=== PATIENT | male | born 1975 | race Caucasian/White ===

== ENCOUNTER 2019-07-26 12:21 | Emergency (ER) | payer OTHER ==
[~2019-07-26] VITALS: Ht 180.3 cm; Wt 90.3 kg
[2019-07-26 12:25] VITALS: Ht 180.3 cm; Wt 90.3 kg
[2019-07-26 13:03] LABS: BASOPHIL % 0.5 % (0-2); PLATELET COUNT 193 x10^3mcL (130-400); RED CELL DISTRIBUTION WIDTH 13.6 % (11.5-14.5)
[2019-07-26 13:29] LABS: ALBUMIN 3.9 g/dL (3.4-5.0); CALCIUM 9.2 mg/dL (8.5-10.1); CHLORIDE SERUM 105 mmol/L (98-107); CREATININE SERUM 1.1 mg/dL (0.7-1.3); GFR1 > 60 mL/min; GLUCOSE SERUM 82 mg/dL (74-106); POTASSIUM SERUM 3.6 mmol/L (3.5-5.1); SODIUM SERUM 143 mmol/L (136-145); TOTAL PROTEIN, SERUM 8.1 g/dL (6.4-8.2)
[2019-07-26 13:30] LABS: ALKALINE PHOSPHATASE 67 U/L (46-116); ALT/SGPT 45 U/L (16-63); AST/SGOT 21 U/L (15-37); BILIRUBIN TOTAL 0.6 mg/dL (0.20-1.00)
[2019-07-26 15:48] VITALS: BP 128/84
== END 2019-07-26 15:48 | disposition home or self-care (01) ==
LOC: ED 12:21 → EDBD 12:21 → ED 15:48
PROVIDERS: Emergency Medicine
DX: R00.2 Palpitations (principal); K21.9 Gastro-esophageal reflux disease without esophagitis; F41.9 Anxiety disorder, unspecified; I10 Essential (primary) hypertension
CPT/HCPCS: 36415; J7030